=== PATIENT | female | born 1975 | race African-American/Black ===

== ENCOUNTER 2023-10-09 11:27 | Emergency (ER) | payer MEDICAID, OTHER ==
[~2023-10-09] VITALS: Ht 165.1 cm; Wt 80.0 kg
[2023-10-09 11:33] VITALS: O2SAT 98
[2023-10-09 12:40] LABS: BASOPHILS % 2.7 % (0.0-2.0); HEMATOCRIT. 26.1 % (36.0-48.0); HEMOGLOBIN. 7.5 g/dL (12.0-16.0); MEAN CORPUSCULAR HEMOGLOBIN 15.6 pg (28.0-32.0); MEAN CORPUSCULAR HGB CONC 28.5 g/dL (31.0-37.0); MEAN CORPUSCULAR VOLUME 54.7 fL (81.0-99.0); MONOCYTES % 13.8 % (2.0-8.0); NEUTROPHILS % 67.5 % (40.0-76.0); RED BLOOD CELL COUNT 4.78 mill/uL (4.2-5.4); RED CELL DISTRIBUTION WIDTH 26.6 % (11.6-14.6); WHITE BLOOD COUNT 5.9 x1000/uL (4.5-11.0)
[2023-10-09 12:42] LABS: CHLORIDE 107 mEq/L (98-107); POTASSIUM 3.8 mEq/L (3.5-5.1); SODIUM 140 mEq/L (136-145)
[2023-10-09 12:43] LABS: CARBON DIOXIDE 29 mEq/L (21-32)
[2023-10-09 12:44] LABS: CALCIUM 9.7 mg/dL (8.7-10.4)
[2023-10-09 12:47] LABS: HCG SCREEN NEGATIVE
[2023-10-09 12:48] LABS: CREATININE 0.8 mg/dL (0.6-1.0); GLUCOSE 115 mg/dL (70-105)
[2023-10-09 12:49] LABS: UREA NITROGEN BLOOD 12 mg/dL (9-23)
[2023-10-09 12:50] LABS: ALANINE AMINOTRANSFERASE 80 IU/L (10-49); ALBUMIN 3.9 g/dL (3.2-4.8); ASPARTATE AMINOTRANSFERASE 56 IU/L (<34)
[2023-10-09 12:51] LABS: BILIRUBIN TOTAL 0.8 mg/dL (0.1-1.0); DIFFERENTIAL COMMENT 1
[2023-10-09 12:52] LABS: ADD RBC MORPHOLOGY YES
[2023-10-09 12:53] LABS: TROPONIN I HIGH SENSITIVITY < 4 ng/L (3.0-34)
[2023-10-09 13:19] LABS: ANISOCYTOSIS 4+; TARGET CELLS 1+
[2023-10-09 13:20] LABS: HYPOCHROMASIA 2+; MICROCYTOSIS 4+
[2023-10-09 13:22] LABS: GIANT PLATELETS FEW; MEAN PLATELET VOLUME 8.8 fl (7.4-10.4); PLATELET 162 x1000/uL (130-400); PLATELET ESTIMATE NORMAL
[2023-10-09 17:50] VITALS: TEMP 97.9
[2023-10-09] MEDS: ACETAMINOPHEN 325MG TABLET PO STA (17:50)
[2023-10-09] MEDS: SODIUM CHLORIDE 0.9% 1,000 ML IV ONE (19:15)
[2023-10-09 19:30] VITALS: BP 133/85; PULSE 88; RESP 19
[2023-10-09] MEDS: KETOROLAC 15MG/ML VIAL IV ONE (19:30)
== END 2023-10-09 20:51 | disposition home or self-care (01) ==
LOC: ER 13:25
DX: D64.9 Anemia, unspecified (principal); N93.8 Other specified abnormal uterine and vaginal bleeding; I10 Essential (primary) hypertension
CPT/HCPCS: 80053; 84703; 85025; 86850; 86900; 86901; 84484; 36415; 71045; 76830; 76856; 93005; 96361; 96374; 99285; J1885; J7030; Z7610 ×2